=== PATIENT | male | born 1970 | race Hispanic/Latino ===

== ENCOUNTER 2018-01-23 13:58 | Emergency (ER) | payer BC, OTHER ==
[~2018-01-23] VITALS: Ht 175.3 cm; Wt 112.0 kg
[~2018-01-23 13:58] MED LIST: ASPIRIN81 M2 MT; Z.0.LISINOPRIL10 MG MT; Z.0.PRAVASTATIN SOD4 MT
[2018-01-23] MEDS ORDERED: LEVOCETIRIZINE D5 MG (15:27)
[2018-01-23] MEDS ORDERED: MELOXICAM7.5 MG PO (15:27)
[2018-01-23] MEDS ORDERED: LEVOTHYROXINE50 MCG PO (15:27)
[2018-01-23] MEDS ORDERED: CARVEDILOL3.125 MG PO (15:27)
[2018-01-23] MEDS ORDERED: ATORVASTATIN CA10 MG PO (15:27)
[2018-01-23] MEDS ORDERED: CEFTRIAXONE SOD 1 GM VIAL IV SCH (16:15)
[2018-01-23] MEDS ORDERED: CEFTRIAXONE SOD 1 GM VIAL IM SCH (16:30)
[2018-01-23 17:35] VITALS: BP 132/82
== END 2018-01-23 17:15 | disposition home or self-care (01) ==
LOC: FSED 13:58
CPT/HCPCS: 74178; 80053; 81003; 85025; 87086; 96372; 99283